=== PATIENT | female | born 1995 | race Caucasian/White ===

== ENCOUNTER 2020-06-13 10:36 | Emergency (ER) | payer OTHER ==
[~2020-06-13] VITALS: Ht 157.5 cm; Wt 54.5 kg
[2020-06-13 10:42] VITALS: TEMP 98
[2020-06-13] MEDS ORDERED: IBU600 MG PO (10:56)
[2020-06-13 12:10] VITALS: BP 122/86; PULSE 76
== END 2020-06-13 12:10 | disposition home or self-care (01) ==
LOC: COL.ER 10:36
DX: S16.1XXA Strain of muscle, fascia and tendon at neck level, initial encounter (principal); S43.101A Unspecified dislocation of right acromioclavicular joint, initial encounter; V43.92XA Unspecified car occupant injured in collision with other type car in traffic accident, initial encounter

== ENCOUNTER 2020-06-21 17:39 | Emergency (ER) | payer OTHER ==
[~2020-06-21] VITALS: Ht 157.5 cm; Wt 54.5 kg
[~2020-06-21 17:39] MED LIST: IBU600 MG PO
[2020-06-21 17:50] VITALS: BP 129/72; TEMP 97.8
[2020-06-21] MEDS ORDERED: NORCO 325 MG-51 TAB PO (18:51)
[2020-06-21] MEDS ORDERED: FLEXERIL 1010 MG/TAB PO (18:51)
[2020-06-21 19:41] VITALS: PULSE 94
== END 2020-06-21 19:42 | disposition home or self-care (01) ==
LOC: COL.ER 17:39
DX: M25.511 Pain in right shoulder (principal); Z79.1 Long term (current) use of non-steroidal anti-inflammatories (NSAID)

== ENCOUNTER 2020-07-04 06:57 | Emergency (ER) | payer OTHER ==
[~2020-07-04] VITALS: Ht 157.5 cm; Wt 54.5 kg
[~2020-07-04 06:57] MED LIST changes: +FLEXERIL 1010 MG/TAB PO; +NORCO 325 MG-51 TAB PO
[2020-07-04 07:04] VITALS: BP 126/92; PULSE 142; TEMP 98.7
[2020-07-04] MEDS ORDERED: TRI-SPRINTEC 281 TAB PO (07:46)
[2020-07-04] MEDS ORDERED: ZYRTEC ALLERGY10 MG PO (07:46)
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
== END 2020-07-04 11:15 | disposition home or self-care (01) ==
LOC: COL.ER 06:57
DX: T74.21XA Adult sexual abuse, confirmed, initial encounter (principal); Z90.09 Acquired absence of other part of head and neck